=== PATIENT | male | born 1935 | race Hispanic/Latino ===

== ENCOUNTER 2017-01-16 12:10 | Inpatient (IN) | payer MEDICARE ==
--- NOTE | 2017-01-16 12:51 | Emergency Department Report ---
ED Shortness of Breath HPI - General Chief Complaint: Dyspnea/Respdistress Stated Complaint: NIKITA Time Seen by Provider: 01/16/17 12:31 Source: patient, EMS Mode of arrival: Stretcher Limitations: Physical Limitation - History of Present Illness Initial Comments: 81-year-old male with a past medical history COPD on home O2, diabetes, GERD, appendectomy and previous admission to [facility] where he was treated for infection of the liver and presents with a surgical right upper quadrant drain presents to the hospital with difficulty breathing. Patient has had difficulty breathing for several hours prior to calling EMS. Patient went to the bathroom had a syncopal episode. Noted to have bilateral rales and rhonchi throughout. Patient was placed on CPAP by EMS and received morphine 2 mg, Lasix 20 mg, and aspirin 325 mg. Patient complains of chest pain rated 6/10 in intensity related to difficulty breathing. He denies headache, neck pain, abdominal pain , or focal weakness. After family member arrival she was able to clarify that patient had a cholecystostomy tube placed about 2 months ago at [facility] because patient was too weak to undergo cholecystectomy. The tube may have been pulled out a little bit since placement. - Related Data Home Medications Medication Instructions Recorded Confirmed Last Taken Aspirin [Aspirin BABY CHEW TAB] 81 mg PO DAILY 02/17/13 10/11/16 03/30/16 FLUoxetine [PROzac] 20 mg PO DAILY 02/17/13 10/11/16 03/30/16 metFORMIN [Glucophage] 500 mg PO DAILY 02/17/13 10/11/16 03/30/16 Insulin Aspart [NovoLOG Flexpen] 10 units SQ BID 04/05/16 10/11/16 Unknown Allopurinol [Zyloprim] 100 mg PO QDAY 10/11/16 10/11/16 Unknown Budesonide [Pulmicort Flexhaler] 90 mcg IH BID 10/11/16 10/11/16 Unknown Fludrocortisone [Florinef Tab] 0.1 mg PO QDAY 10/11/16 10/11/16 Unknown Ibuprofen [Motrin] 800 mg PO Q8HR PRN 10/11/16 10/11/16 Unknown Insulin Regular, Human [HumuLIN R] 4 units SUB-Q BID 10/11/16 10/11/16 Unknown Pregabalin [Lyrica] 75 mg PO QDAY 10/11/16 10/11/16 Unknown Umeclidinium Brm/Vilanterol Tr 1 each IH DAILY 10/11/16 10/11/16 Unknown [Anoro Ellipta 62.5-25 Mcg INH] Previous Rx's Medication Instructions Recorded Last Taken Type Budesonide [Pulmicort Respules] 0.5 mg IH Q12HRT #14 nebu 02/19/13 03/30/16 Rx Allergies Allergy/AdvReac Type Severity Reaction Status Date / Time cephalexin monohydrate Allergy Rash Verified 03/30/16 13:54 [From Keflex] Cephalosporins Allergy Rash Verified 01/03/13 14:16 Penicillins Allergy Rash Verified 01/03/13 14:16 ED Review of Systems ROS: Stated complaint: NIKITA Other details as noted in HPI Comment: All other systems reviewed and negative Other: Constitutional: No fevers chills Eyes: No eye pain visual changes ENT: No ear pain or throat pain Neck: Denies pain Respiratory: As per HPI Cardiovascular: As per HPI GI: As per HPI : Denies dysuria Musculoskeletal: Denies back pain Skin: Denies rash, lesions, erythema Neurologic: Denies headache, numbness, weakness Psychiatric: Denies suicidal ideation, hallucinations ED Past Medical Hx - Past Medical History Previous Medical History?: Yes Hx Hypertension: No Hx Diabetes: Yes Hx Deep Vein Thrombosis: No Hx GERD: Yes Hx COPD: Yes (ON 02 AT 2L NC ALL THE TIME) Additional medical history: hx pericarditis, recently cleared MRSA, toe infection - Surgical History Past Surgical History?: Yes Hx Pacemaker: No Hx Internal Defibrillator: No Hx Appendectomy: Yes Additional Surgical History: cervical (c3-c4) fusion, TURP, penile implant. Gallbladder drain - Social History Smoking Status: Former Smoker Substance Use Type: Prescribed - Medications Home Medications: Home Medications Medication Instructions Recorded Confirmed Last Taken Type Aspirin [Aspirin BABY CHEW TAB] 81 mg PO DAILY 02/17/13 10/11/16 03/30/16 History FLUoxetine [PROzac] 20 mg PO DAILY 02/17/13 10/11/16 03/30/16 History metFORMIN [Glucophage] 500 mg PO DAILY 02/17/13 10/11/16 03/30/16 History Budesonide [Pulmicort Respules] 0.5 mg IH Q12HRT #14 nebu 02/19/13 10/11/1605/11 Rx Insulin Aspart [NovoLOG Flexpen] 10 units SQ BID 04/05/16 10/11/16 Unknown History Allopurinol [Zyloprim] 100 mg PO QDAY 10/11/16 10/11/16 Unknown History Budesonide [Pulmicort Flexhaler] 90 mcg IH BID 10/11/16 10/11/16 Unknown History Fludrocortisone [Florinef Tab] 0.1 mg PO QDAY 10/11/16 10/11/16 Unknown History Ibuprofen [Motrin] 800 mg PO Q8HR PRN 10/11/16 10/11/16 Unknown History Insulin Regular, Human [HumuLIN R] 4 units SUB-Q BID 10/11/16 10/11/16 Unknown History Pregabalin [Lyrica] 75 mg PO QDAY 10/11/16 10/11/16 Unknown History Umeclidinium Brm/Vilanterol Tr 1 each IH DAILY 10/11/16 10/11/16 Unknown History [Anoro Ellipta 62.5-25 Mcg INH] ED Physical Exam - General Limitations: Physical Limitation - Other Other exam information: General: No limitations, patient is alert in no acute distress Head exam: Atraumatic, normocephalic Eyes exam: Normal appearance, pupils equal reactive to light, extraocular movements intact. Nonicteric sclera ENT: Moist mucous membrane, normal oropharynx Neck exam: Normal inspection, full range of motion, no meningismus nontender Respiratory exam: Tachypnea, bilateral rhonchi Cardiovascular: Normal rate and rhythm Abdomen: Soft, nondistended, right upper quadrant drainage tube with bilious drainage. Abdomen nontender Extremity: Full range of motion normal inspection no deformity, Parker symmetric, no edema, minute Back: Normal Inspection, full range of motion, no tenderness Neurologic: Alert, cranial nerves intact, equal hand shank cementer hand and dorsiflexion. Sensation intact Psychiatric: normal affect, normal mood Skin: Warm, dry, intact ED Course Vital Signs 01/16/17 01/16/17 01/16/17 12:13 12:49 12:51 Temperature 97 F L Pulse Rate 100 H 85 Pulse Rate [ Bilateral] Respiratory 28 H 28 H 32 H Rate Respiratory Rate [Bilateral ] Blood Pressure Blood Pressure [Right] O2 Sat by Pulse 99 99 99 Oximetry 11/01/16/17 01/16/17 12:53 13:00 13:12 Temperature Pulse Rate 83 85 83 Pulse Rate [ Bilateral] Respiratory 32 H 35 H 28 H Rate Respiratory Rate [Bilateral ] Blood Pressure 74/37 Blood Pressure 74/37 72/40 [Right] O2 Sat by Pulse 99 98 99 Oximetry 01/16/17 01/16/17 01/16/17 13:16 13:30 13:34 Temperature Pulse Rate 85 80 81 Pulse Rate [ Bilateral] Respiratory 35 H 34 H Rate Respiratory Rate [Bilateral ] Blood Pressure 72/40 81/43 Blood Pressure [Right] O2 Sat by Pulse 97 97 Oximetry 01/16/17 01/16/17 01/16/17 13:46 13:48 14:00 Temperature Pulse Rate 88 113 H Pulse Rate [ 86 Bilateral] Respiratory 29 H 33 H Rate Respiratory 33 H Rate [Bilateral ] Blood Pressure 81/43 81/43 Blood Pressure [Right] O2 Sat by Pulse 95 89 Oximetry 01/16/17 18:26 Temperature Pulse Rate 126 H Pulse Rate [ Bilateral] Respiratory 29 H Rate Respiratory Rate [Bilateral ] Blood Pressure 110/53 Blood Pressure [Right] O2 Sat by Pulse 96 Oximetry - Reevaluation(s) Reevaluation #1: 01/16/17 12:51 BiPAP continued upon arrival. ED Medical Decision Making - Lab Data Result diagrams: 01/16/17 12:38 01/16/17 12:38 Lab Results 01/16/17 01/16/17 01/16/17 Range/Units 12:38 12:38 12:38 WBC 16.7 H (4.5-11.0) K/mm3 RBC 3.18 L (3.65-5.03) M/mm3 Hgb 10.0 L (11.8-15.2) gm/dl Hct 29.2 L (35.5-45.6) % MCV 92 (84-94) fl MCH 31 (28-32) pg MCHC 34 (32-34) % RDW 16.9 H (13.2-15.2) % Plt Count 300 (140-440) K/mm3 Lymph % (Auto) 8.1 L (13.4-35.0) % Price % (Auto) 4.6 (0.0-7.3) % Eos % (Auto) 3.0 (0.0-4.3) % Baso % (Auto) 0.4 (0.0-1.8) % Lymph # 1.4 (1.2-5.4) K/mm3 Price # 0.8 (0.0-0.8) K/mm3 Eos # 0.5 H (0.0-0.4) K/mm3 Baso # 0.1 (0.0-0.1) K/mm3 Seg Neutrophils % 83.9 H (40.0-70.0) % Seg Neutrophils # 14.0 H (1.8-7.7) K/mm3 PT 16.1 H (12.2-14.9) Sec. INR 1.23 H (0.87-1.13) APTT 32.7 (24.2-36.6) Sec. POC ABG pH (7.35-7.45) POC ABG pCO2 (35-45) POC ABG pO2 (80-105) POC ABG HCO3 POC ABG Total CO2 POC ABG O2 Sat POC ABG Base Excess FiO2 % Sodium 139 (137-145) mmol/L Potassium 4.2 (3.6-5.0) mmol/L Chloride 103.9 (98-107) mmol/L Carbon Dioxide 19 L (22-30) mmol/L Anion Gap 20 mmol/L BUN 24 H (9-20) mg/dL Creatinine 0.8 (0.8-1.5) mg/dL Estimated GFR > 60 ml/min BUN/Creatinine Ratio 30 % Glucose 195 H (75-100) mg/dL Lactic Acid (0.7-2.0) mmol/L Calcium 8.5 (8.4-10.2) mg/dL Total Bilirubin (0.1-1.2) mg/dL Direct Bilirubin (0-0.2) mg/dL AST (5-40) units/L ALT (7-56) units/L Alkaline Phosphatase (35-129) units/L Troponin T < 0.010 (0.00-0.029) ng/mL NT-Pro-B Natriuret Pep (0-900) pg/mL Total Protein (6.3-8.2) g/dL Albumin (3.9-5) g/dL Albumin/Globulin Ratio % Lipase (13-60) units/L Urine Color (Yellow) Urine Turbidity (Clear) Urine pH (5.0-7.0) Ur Specific [place] (1.003-1.030) Urine Protein (Negative) mg/dL Urine Glucose (UA) (Negative) mg/dL Urine Ketones (Negative) mg/dL Urine Blood (Negative) Urine Nitrite (Negative) Urine Bilirubin (Negative) Urine Urobilinogen (<2.0) mg/dL Ur Leukocyte Esterase (Negative) Urine WBC (Auto) (0.0-6.0) /HPF Urine RBC (Auto) (0.0-6.0) /HPF U Epithel Cells (Auto) (0-13.0) /HPF Urine Mucus /HPF Urine Yeast (Budding) /HPF Blood Type Antibody Screen 01/16/17 01/16/17 01/16/17 Range/Units 12:38 12:50 13:33 WBC (4.5-11.0) K/mm3 RBC (3.65-5.03) M/mm3 Hgb (11.8-15.2) gm/dl Hct (35.5-45.6) % MCV (84-94) fl MCH (28-32) pg MCHC (32-34) % RDW (13.2-15.2) % Plt Count (140-440) K/mm3 Lymph % (Auto) (13.4-35.0) % Price % (Auto) (0.0-7.3) % Eos % (Auto) (0.0-4.3) % Baso % (Auto) (0.0-1.8) % Lymph # (1.2-5.4) K/mm3 Price # (0.0-0.8) K/mm3 Eos # (0.0-0.4) K/mm3 Baso # (0.0-0.1) K/mm3 Seg Neutrophils % (40.0-70.0) % Seg Neutrophils # (1.8-7.7) K/mm3 PT (12.2-14.9) Sec. INR (0.87-1.13) APTT (24.2-36.6) Sec. POC ABG pH 7.456 H (7.35-7.45) POC ABG pCO2 31.6 L (35-45) POC ABG pO2 203 H (80-105) POC ABG HCO3 22.3 POC ABG Total CO2 23 POC ABG O2 Sat 100 POC ABG Base Excess -2 FiO2 50 % Sodium (137-145) mmol/L Potassium (3.6-5.0) mmol/L Chloride (98-107) mmol/L Carbon Dioxide (22-30) mmol/L Anion Gap mmol/L BUN (9-20) mg/dL Creatinine (0.8-1.5) mg/dL Estimated GFR ml/min BUN/Creatinine Ratio % Glucose (75-100) mg/dL Lactic Acid (0.7-2.0) mmol/L Calcium (8.4-10.2) mg/dL Total Bilirubin 0.20 (0.1-1.2) mg/dL Direct Bilirubin < 0.2 (0-0.2) mg/dL AST 15 (5-40) units/L ALT 16 (7-56) units/L Alkaline Phosphatase 68 (35-129) units/L Troponin T (0.00-0.029) ng/mL NT-Pro-B Natriuret Pep 1522 H (0-900) pg/mL Total Protein 6.4 (6.3-8.2) g/dL Albumin 3.1 L (3.9-5) g/dL Albumin/Globulin Ratio 0.9 % Lipase 28 (13-60) units/L Urine Color Yellow (Yellow) Urine Turbidity Clear (Clear) Urine pH 6.0 (5.0-7.0) Ur Specific [place] 1.009 (1.003-1.030) Urine Protein 30 mg/dl (Negative) mg/dL Urine Glucose (UA) Neg (Negative) mg/dL Urine Ketones Neg (Negative) mg/dL Urine Blood Neg (Negative) Urine Nitrite Neg (Negative) Urine Bilirubin Neg (Negative) Urine Urobilinogen < 2.0 (<2.0) mg/dL Ur Leukocyte Esterase Mod (Negative) Urine WBC (Auto) 21.0 H (0.0-6.0) /HPF Urine RBC (Auto) 5.0 (0.0-6.0) /HPF U Epithel Cells (Auto) < 1.0 (0-13.0) /HPF Urine Mucus Few /HPF Urine Yeast (Budding) 1+ /HPF Blood Type Antibody Screen 01/16/17 01/16/17 Range/Units 13:38 17:51 WBC (4.5-11.0) K/mm3 RBC (3.65-5.03) M/mm3 Hgb (11.8-15.2) gm/dl Hct (35.5-45.6) % MCV (84-94) fl MCH (28-32) pg MCHC (32-34) % RDW (13.2-15.2) % Plt Count (140-440) K/mm3 Lymph % (Auto) (13.4-35.0) % Price % (Auto) (0.0-7.3) % Eos % (Auto) (0.0-4.3) % Baso % (Auto) (0.0-1.8) % Lymph # (1.2-5.4) K/mm3 Price # (0.0-0.8) K/mm3 Eos # (0.0-0.4) K/mm3 Baso # (0.0-0.1) K/mm3 Seg Neutrophils % (40.0-70.0) % Seg Neutrophils # (1.8-7.7) K/mm3 PT (12.2-14.9) Sec. INR (0.87-1.13) APTT (24.2-36.6) Sec. POC ABG pH (7.35-7.45) POC ABG pCO2 (35-45) POC ABG pO2 (80-105) POC ABG HCO3 POC ABG Total CO2 POC ABG O2 Sat POC ABG Base Excess FiO2 % Sodium (137-145) mmol/L Potassium (3.6-5.0) mmol/L Chloride (98-107) mmol/L Carbon Dioxide (22-30) mmol/L Anion Gap mmol/L BUN (9-20) mg/dL Creatinine (0.8-1.5) mg/dL Estimated GFR ml/min BUN/Creatinine Ratio % Glucose (75-100) mg/dL Lactic Acid 1.30 (0.7-2.0) mmol/L Calcium (8.4-10.2) mg/dL Total Bilirubin (0.1-1.2) mg/dL Direct Bilirubin (0-0.2) mg/dL AST (5-40) units/L ALT (7-56) units/L Alkaline Phosphatase (35-129) units/L Troponin T (0.00-0.029) ng/mL NT-Pro-B Natriuret Pep (0-900) pg/mL Total Protein (6.3-8.2) g/dL Albumin (3.9-5) g/dL Albumin/Globulin Ratio % Lipase (13-60) units/L Urine Color (Yellow) Urine Turbidity (Clear) Urine pH (5.0-7.0) Ur Specific [place] (1.003-1.030) Urine Protein (Negative) mg/dL Urine Glucose (UA) (Negative) mg/dL Urine Ketones (Negative) mg/dL Urine Blood (Negative) Urine Nitrite (Negative) Urine Bilirubin (Negative) Urine Urobilinogen (<2.0) mg/dL Ur Leukocyte Esterase (Negative) Urine WBC (Auto) (0.0-6.0) /HPF Urine RBC (Auto) (0.0-6.0) /HPF U Epithel Cells (Auto) (0-13.0) /HPF Urine Mucus /HPF Urine Yeast (Budding) /HPF Blood Type A POSITIVE Antibody Screen Negative - EKG Data -: EKG Interpreted by Me (rbbb, lafb) EKG shows normal: sinus rhythm (96), axis (-72), QRS complexes (135), ST-T waves (no t wave inv) - EKG Data When compared to previous EKG there are: no significant change - Radiology Data Radiology results: report reviewed Read by radiologist: Portable chest x-ray: No acute process CT head: Significant changes no acute process CT abdomen and pelvis with IV contrast: Mild inflamed gallbladder with a cholecystostomy tube. Otherwise no acute inflammatory process is appreciated. Possible distal common bile duct stone or sludge. Bilateral renal 6 CT angiogram chest: No evidence of pulmonary embolus. Mild emphysema. Bilateral perihilar infiltrates consistent with pneumonia Read by me: Portable chest x-ray status post right IJ placement: Increased interstitial markings perihilar and left lower lobe. Could represent CHF versus infiltrate. Patient has received 3 L of normal saline prior to this repeat x-ray - Medical Decision Making Patient requires admission to the hospital for further treatment of respiratory distress with hypoxia and persistent hypotension despite IV fluid bolus. After 3 L normal saline IV patient continued to be hypotensive therefore central line was placed. At the central line placement and placemnt in Trendelenburg patient 's BP improved with systolic above 100. Chest xray now reveals increased interstitial markings which could represent pulmonary edema from fluid resuscitation or a more visible pneumonia. BiPAP will be continued. ABG did not reveal any significant acid base abnormality. Urine positive for increased WBC. Patient provided both Levaquin for both UTI and pneumonia. Patient will require ICU admission and possible surgical eval regarding cholecystomy tube - Differential Diagnosis CHF, PE, bronchitis, pneumonia, sepsis, COPD exacerbation Critical Care Time: No Critical care attestation.: If time is entered above; I have spent that time in minutes in the direct care of this critically ill patient, excluding procedure time. ED Disposition Clinical Impression: Pneumonia, COPD exacerbation, Hypotension, UTI (urinary tract infection), Type II diabetes mellitus, Gallstones and inflammation of gallbladder without obstruction, Cholecystostomy care, Syncope, Hypoxia Disposition: -09 OP ADMIT IP TO THIS HOSP Is pt being admited?: Yes Condition: Stable Time of Disposition: 16:33 (Dr Aguilar/hosp)
[2017-01-16 12:59] LABS: Basophils % (Auto) 0.4 % (0.0-1.8); Hematocrit 29.2 % (35.5-45.6); Mean Corpuscular HGB Conc 34 % (32-34); Mean Corpuscular Hemoglobin 31 pg (28-32); Mean Corpuscular Volume 92 fl (84-94); Platelet Count 300 K/mm3 (140-440); Red Blood Count 3.18 M/mm3 (3.65-5.03); Red Cell Distribution Width 16.9 % (13.2-15.2); White Blood Count 16.7 K/mm3 (4.5-11.0)
--- NOTE | 2017-01-16 13:07 | XRay Report ---
AP CHEST: HISTORY: Short of breath AP view of the chest demonstrates a normal mediastinal and cardiac contour with clear lungs and normal bony and soft tissue structures. IMPRESSION: No acute cardiopulmonary process.
[2017-01-16 13:10] LABS: INR 1.23 (0.87-1.13)
[2017-01-16] MEDS: NACL 0.9% 1000 ML 1,000 ML IV ONE ×2 (13:10→13:22)
[2017-01-16 13:11] LABS: Partial Thromboplastin Time 32.7 Sec. (24.2-36.6)
[2017-01-16] MEDS ORDERED: ATROVENT IH ONE (13:11)
[2017-01-16] MEDS ORDERED: PROVENTIL IH ONE (13:11)
[2017-01-16 13:13] LABS: ISTAT Base Excess -2; ISTAT HCO3 22.3; ISTAT PCO2 31.6 (35-45); ISTAT PH 7.456 (7.35-7.45); ISTAT PO2 203 (80-105); ISTAT SO2 100; ISTAT TCO2 23
[2017-01-16] MEDS ORDERED: NACL 0.9% 1000 ML 1,000 ML IV ONE ×2 (13:14→15:56)
[2017-01-16 13:19] LABS: Anion Gap 20 mmol/L; BUN/Creatinine Ratio 30; Blood Urea Nitrogen 24 mg/dL (9-20); Calcium 8.5 mg/dL (8.4-10.2); Carbon Dioxide 19 mmol/L (22-30); Chloride 103.9 mmol/L (98-107); Glucose 195 mg/dL (75-100); Potassium 4.2 mmol/L (3.6-5.0); Sodium 139 mmol/L (137-145)
[2017-01-16 13:23] LABS: Alanine Aminotransferase 16 units/L (7-56); Albumin 3.1 g/dL (3.9-5); Albumin/Globulin Ratio 0.9 %; Alkaline Phosphatase 68 units/L (35-129); Lipase 28 units/L (13-60); Total Protein 6.4 g/dL (6.3-8.2)
[2017-01-16 13:24] LABS: Bilirubin,Direct < 0.2 mg/dL (0-0.2)
[2017-01-16] MEDS ORDERED: NACL ONE ×2 (13:32→14:27)
[2017-01-16 14:02] LABS: Bilirubin,Urine NEG (Negative); Blood,Urine NEG (Negative); Ketones,Urine NEG (Negative); Leukocyte Esterase,Urine MOD (Negative); Mucus,Urine FEW /HPF; Nitrite,Urine NEG (Negative); Urobilinogen,Urine < 2.0 mg/dL (<2.0)
[2017-01-16] MEDS ORDERED: LEVAQUIN 750MG/150ML 750 MG/150 ML BAG IV ONE (14:21)
[2017-01-16] MEDS ORDERED: DILAUDID IV ONE (14:35)
[2017-01-16] MEDS ORDERED: ZOFRAN IV ONE (14:36)
--- NOTE | 2017-01-16 15:28 | Cat Scan Report ---
CT HEAD WITHOUT CONTRAST: HISTORY: Syncope. TECHNIQUE: Sequential CT images without contrast. FINDINGS: Non-contrast CT of the head is submitted demonstrating central and cortical atrophy. There are low density changes in the periventricular white matter. There is no intracranial hemorrhage or mass effect. There is no shift of the midline. Basilar cisterns are patent. The included portions of the paranasal sinuses and mastoid air cells are clear. IMPRESSION: Senescent changes as noted. No acute intracranial process.
--- NOTE | 2017-01-16 15:30 | Cat Scan Report ---
CTA CHEST: HISTORY: Syncope, hypoxia, COPD. COMPARISON: none. TECHNIQUE: Helical CT in 1.25mm intervals following IV contrast. Pulmonary embolus protocol. Sagittal and coronal reformatted images. Rotational MIP images. FINDINGS: Contrast bolus is satisfactory. No pulmonary embolus is identified. Thyroid gland: normal. Tracheobronchial tree: normal. Esophagus: normal. Heart: normal. Mediastinum: normal. Lung Dill: Mild emphysematous changes are identified. There are patchy bilateral perihilar infiltrates consistent with pneumonia. No consolidation, pleural effusion or pneumothorax. Musculoskeletal: normal. IMPRESSION: No evidence for pulmonary embolus. Mild emphysema. Bilateral perihilar infiltrates consistent with pneumonia.
--- NOTE | 2017-01-16 15:33 | Cat Scan Report ---
CT ABDOMEN PELVIS WITH CONTRAST: HISTORY: abdominal pain. COMPARISON: none. TECHNIQUE: Helical CT in 1.25mm intervals following IV contrast. Sagittal and coronal reconstructions. FINDINGS: Liver: normal. Biliary system: A cholecystostomy tube terminates in the gallbladder. The gallbladder appears mildly inflamed. There is an abrupt change in caliber in the distal common bile duct consistent with a stone or sludge. Choledocholithiasis should be considered. Pancreas: normal. Spleen: normal. Kidneys/ureters/bladder: Bilateral renal cysts are identified. The largest cyst measures 6.7 cm in the inferior right kidney. The ureters and bladder are unremarkable. A Nguyễn catheter is in place. Adrenal glands: normal. Aorta: normal. Intestines: normal. Appendix: Not clearly identified. Pelvic viscera: normal. Musculoskeletal: Spondylosis is noted. No fracture or bony lesion. IMPRESSION: Mildly inflamed gallbladder which contains a cholecystostomy tube. Otherwise, no acute inflammatory process is appreciated. Possible distal common bile duct stone or sludge. Bilateral renal cysts
[2017-01-16] MEDS ORDERED: ZOFRAN IV PRN (17:20)
--- NOTE | 2017-01-16 17:26 | History and Physical Report ---
History of Present Illness Date of examination: 01/16/17 Date of admission: 01/16/17 History of present illness: 81-year-old male with a past medical history COPD on home O2, diabetes, GERD, appendectomy and previous admission to [facility] where he was treated for infection of the liver and presents with a surgical right upper quadrant drain presents to the hospital with difficulty breathing. Patient has had difficulty breathing for several hours prior to calling EMS. Patient went to the bathroom had a syncopal episode. Noted to have bilateral rales and rhonchi throughout. Patient was placed on CPAP by EMS and received morphine 2 mg, Lasix 20 mg, and aspirin 325 mg. Patient complains of chest pain rated 6/10 in intensity related to difficulty breathing. He denies headache, neck pain, abdominal pain , or focal weakness. After family member arrival she was able to clarify that patient had a cholecystostomy tube placed about 2 months ago at [facility] because patient was too weak to undergo cholecystectomy. The tube may have been pulled out a little bit since placement. Medications and Allergies Allergies Allergy/AdvReac Type Severity Reaction Status Date / Time cephalexin monohydrate Allergy Rash Verified 03/30/16 13:54 [From Keflex] Cephalosporins Allergy Rash Verified 01/03/13 14:16 Penicillins Allergy Rash Verified 01/03/13 14:16 Home Medications Medication Instructions Recorded Confirmed Last Taken Type Aspirin [Aspirin BABY CHEW TAB] 81 mg PO DAILY 02/17/13 01/17/17 03/30/16 History FLUoxetine [PROzac] 20 mg PO DAILY 02/17/13 01/17/17 03/30/16 History metFORMIN [Glucophage] 500 mg PO DAILY 02/17/13 01/17/17 03/30/16 History Budesonide [Pulmicort Respules] 0.5 mg IH Q12HRT #14 nebu 02/19/13 01/17/1705/11 Rx Insulin Aspart [NovoLOG Flexpen] 10 units SQ BID 04/05/16 01/17/17 Unknown History Allopurinol [Zyloprim] 100 mg PO QDAY 10/11/16 01/17/17 Unknown History Budesonide [Pulmicort Flexhaler] 90 mcg IH BID 10/11/16 01/17/17 Unknown History Fludrocortisone [Florinef Tab] 0.1 mg PO QDAY 10/11/16 01/17/17 Unknown History Ibuprofen [Motrin] 800 mg PO Q8HR PRN 10/11/16 01/17/17 Unknown History Insulin Regular, Human [HumuLIN R] 4 units SUB-Q BID 10/11/16 01/17/17 Unknown History Pregabalin [Lyrica] 75 mg PO QDAY 10/11/16 01/17/17 Unknown History Umeclidinium Brm/Vilanterol Tr 1 each IH DAILY 10/11/16 01/17/17 Unknown History [Anoro Ellipta 62.5-25 Mcg INH] Active Meds: Active Medications Ondansetron HCl (Zofran) 4 mg IV Q6H PRN PRN Reason: nausea or vomiting Exam - Physical Exam Narrative exam: GEN APPEARANCE : On BIPAP mask HEENT: Normocephalic Atraumatic NECK : supple, no JVD LUNGS: Bilateral rales. no wheeze HEART: S1 and S2 regular, no murmurs, rubs or gallop,r ABD: Soft, no tenderness, no distension, normal bowel sounds EXT: No edema, no clubbing, no cyanosis NEURO: Awake,alert, Skin Sacral and heel decub ulcers - Constitutional Vitals: Temp Pulse Resp BP Pulse Ox 97 F L 113 H 33 H 81/43 89 01/16/17 12:13 01/16/17 14:00 01/16/17 14:00 01/16/17 14:00 01/16/17 14:00 Results - Labs CBC & Chem 7: 01/17/17 07:15 01/17/17 04:28 Labs: Abnormal lab results 01/16/17 01/16/17 01/16/17 Range/Units 12:38 12:38 12:38 WBC 16.7 H (4.5-11.0) K/mm3 RBC 3.18 L (3.65-5.03) M/mm3 Hgb 10.0 L (11.8-15.2) gm/dl Hct 29.2 L (35.5-45.6) % RDW 16.9 H (13.2-15.2) % Lymph % (Auto) 8.1 L (13.4-35.0) % Eos # 0.5 H (0.0-0.4) K/mm3 Seg Neutrophils % 83.9 H (40.0-70.0) % Seg Neutrophils # 14.0 H (1.8-7.7) K/mm3 PT 16.1 H (12.2-14.9) Sec. INR 1.23 H (0.87-1.13) POC ABG pH (7.35-7.45) POC ABG pCO2 (35-45) POC ABG pO2 (80-105) Carbon Dioxide 19 L (22-30) mmol/L BUN 24 H (9-20) mg/dL Glucose 195 H (75-100) mg/dL NT-Pro-B Natriuret Pep (0-900) pg/mL Albumin (3.9-5) g/dL Urine WBC (Auto) (0.0-6.0) /HPF 01/16/17 01/16/17 01/16/17 Range/Units 12:38 12:50 13:33 WBC (4.5-11.0) K/mm3 RBC (3.65-5.03) M/mm3 Hgb (11.8-15.2) gm/dl Hct (35.5-45.6) % RDW (13.2-15.2) % Lymph % (Auto) (13.4-35.0) % Eos # (0.0-0.4) K/mm3 Seg Neutrophils % (40.0-70.0) % Seg Neutrophils # (1.8-7.7) K/mm3 PT (12.2-14.9) Sec. INR (0.87-1.13) POC ABG pH 7.456 H (7.35-7.45) POC ABG pCO2 31.6 L (35-45) POC ABG pO2 203 H (80-105) Carbon Dioxide (22-30) mmol/L BUN (9-20) mg/dL Glucose (75-100) mg/dL NT-Pro-B Natriuret Pep 1522 H (0-900) pg/mL Albumin 3.1 L (3.9-5) g/dL Urine WBC (Auto) 21.0 H (0.0-6.0) /HPF Assessment and Plan Acute resp failure. Admit to ICU. On BIPAP Septic shock. Started Levaquin and vancomycin. he is allergic to Penicillin, Cephalosporin Hypotension, may be septic shock. Start Levophed drip. Multiple iv fluid bolus given Pneumonia, bilateral on CXR. Diabetes mellitus. Monitor fingerstick Decub ulcer right cholecystostomy tube with leaking over abdominal wall. family said tube was accidentally pulled bu home health staff. Will consult surg instructional interventionist DVT prophylaxis Full code status
[2017-01-16] MEDS ORDERED: VANCOMYCIN VIAL IV ONE (17:29)
[2017-01-16] MEDS ORDERED: NACL 0.9% 1000 ML 2,000 ML IV ONE (17:38)
[2017-01-16] MEDS ORDERED: PROTONIX IV SCH (18:00)
[2017-01-16] MEDS ORDERED: LEVOPHED DRIP 4 MG/NS 250 ML 4 MG/250 ML BAG IV SCH (18:00)
[2017-01-16] MEDS ORDERED: VANCOMYCIN PHARMACY TO DOSE IV SCH (18:00)
[2017-01-16] MEDS ORDERED: NACL 0.9% 1000 ML 1,000 ML ONE (19:29)
[2017-01-16] MEDS ORDERED: VANCOMYCIN 1,500 MG in NACL 0.9% 500 ML 500 ML IV ONE (20:00)
[2017-01-16] MEDS ORDERED: FLAGYL 500 MG/100 ML 500 MG/100 ML BAG IV ONE (20:07)
[2017-01-16] MEDS: FLAGYL 500 MG/100 ML 500 MG/100 ML BAG IV SCH ×2 (20:08→22:41)
--- NOTE | 2017-01-16 20:23 | XRay Report ---
FINAL REPORT PROCEDURE: XR CHEST 1V AP TECHNIQUE: Chest radiograph anteroposterior view. CPT 77116 HISTORY: central line placement COMPARISON: No prior studies are available for comparison. FINDINGS: Heart: Normal. Mediastinum/Vessels: Normal. Lungs/Pleural space: Diffuse alveolar opacities are noted involving bilateral lungs. There are no mass lesions. Pleural spaces are clear.. Bony thorax: No acute osseous abnormality. Life support devices: A right jugular central line is identified terminating at the level of mid superior vena cava.. IMPRESSION: Findings are most consistent with diffuse pneumonia bilateral lungs. Comparison with any prior studies would be of help..
[2017-01-17] MEDS ORDERED: MORPHINE IV PRN (03:05)
--- NOTE | 2017-01-17 04:47 | Consultation ---
History of Present Illness Consult date: 01/17/17 - History of present illness History of present illness: 81 yo M with hx of COPD on 3LNC at home, DM, GERD presents to ER with SOB and near syncopal events. The patient is currently on BIPAP and all history is obtained from the chart. No family at bedside. Per chart, the patient was seen at [facility] approximately 2 months ago and had a percutaneous cholecystostomy tube placed at that time. Surgery is consulted because of leakage around the cholecystostomy tube. Past History Past Medical History: COPD, diabetes, GERD Past Surgical History: Other (percutaneous cholecystostomy tube, appendectomy) Social history: denies: smoking, alcohol abuse Family history: no significant family history Medications and Allergies Allergies Allergy/AdvReac Type Severity Reaction Status Date / Time cephalexin monohydrate Allergy Rash Verified 03/30/16 13:54 [From Keflex] Cephalosporins Allergy Rash Verified 01/03/13 14:16 Penicillins Allergy Rash Verified 01/03/13 14:16 Home Medications Medication Instructions Recorded Confirmed Last Taken Type Aspirin [Aspirin BABY CHEW TAB] 81 mg PO DAILY 02/17/13 10/11/16 03/30/16 History FLUoxetine [PROzac] 20 mg PO DAILY 02/17/13 10/11/16 03/30/16 History metFORMIN [Glucophage] 500 mg PO DAILY 02/17/13 10/11/16 03/30/16 History Budesonide [Pulmicort Respules] 0.5 mg IH Q12HRT #14 nebu 02/19/13 10/11/1605/11 Rx Insulin Aspart [NovoLOG Flexpen] 10 units SQ BID 04/05/16 10/11/16 Unknown History Allopurinol [Zyloprim] 100 mg PO QDAY 10/11/16 10/11/16 Unknown History Budesonide [Pulmicort Flexhaler] 90 mcg IH BID 10/11/16 10/11/16 Unknown History Fludrocortisone [Florinef Tab] 0.1 mg PO QDAY 10/11/16 10/11/16 Unknown History Ibuprofen [Motrin] 800 mg PO Q8HR PRN 10/11/16 10/11/16 Unknown History Insulin Regular, Human [HumuLIN R] 4 units SUB-Q BID 10/11/16 10/11/16 Unknown History Pregabalin [Lyrica] 75 mg PO QDAY 10/11/16 10/11/16 Unknown History Umeclidinium Brm/Vilanterol Tr 1 each IH DAILY 10/11/16 10/11/16 Unknown History [Anoro Ellipta 62.5-25 Mcg INH] Active Meds: Active Medications Levofloxacin/Dextrose (Levaquin 750mg/150ml) 750 mg in 150 mls @ 100 mls/hr IV Q24HR SABINO PRN Reason: Protocol Metronidazole (Flagyl 500 Mg/100 Ml) 500 mg in 100 mls @ 100 mls/hr IV Q8HR [facility] Last Admin: 01/16/17 22:41 Dose: Not Given Norepinephrine (Levophed Drip 4 Mg/Ns 250 Ml) 4 mg in 250 mls @ 7.5 mls/hr IV TITR SABINO; 2 MCG/MIN PRN Reason: Protocol Vancomycin HCl 1,250 mg/ (Sodium Chloride) 262.5 mls @ 166.667 mls/hr IV Q12H SABINO Morphine Sulfate (Morphine) 2 mg IV Q4H PRN PRN Reason: Pain, Moderate (4-6) Last Admin: 01/17/17 03:16 Dose: 2 mg Ondansetron HCl (Zofran) 4 mg IV Q6H PRN PRN Reason: nausea or vomiting Pantoprazole Sodium (Protonix) 40 mg IV QDAY [facility] Last Admin: 01/16/17 20:22 Dose: 40 mg Pneumococcal Polyvalent Vaccine (Pneumovax 23) 0.5 ml IM .ONCE ONE Stop: 01/17/17 12:01 Vancomycin HCl (Vancomycin Pharmacy To Dose) 1 each IV PKCONSULT [facility] PRN Reason: Protocol Review of Systems ROS unobtainable: due to mental status (and on BIPAP) Exam Vital Signs Temp Pulse Resp Pulse Ox 97 F L 100 H 28 H 99 01/16/17 12:13 01/16/17 12:13 01/16/17 12:13 01/16/17 12:13 Narrative exam: Gen: Arousable, lethargic, on bipap ENT: NGT in place CV: S1, S2+ resp: No audible wheezes Abd: soft, NT, ND. cholecystostomy tube in RUQ with minimal drainage in bag. Bile staining on dressing. Dressing removed, excoriation of skin around tube. No active bile leakage seen around tube. 4x4 gauze and coversite applied. Results - Labs 01/16/17 12:38 01/16/17 12:38 Abnormal lab results 01/16/17 01/16/17 01/16/17 Range/Units 12:38 12:38 12:38 WBC 16.7 H (4.5-11.0) K/mm3 RBC 3.18 L (3.65-5.03) M/mm3 Hgb 10.0 L (11.8-15.2) gm/dl Hct 29.2 L (35.5-45.6) % RDW 16.9 H (13.2-15.2) % Lymph % (Auto) 8.1 L (13.4-35.0) % Eos # 0.5 H (0.0-0.4) K/mm3 Seg Neutrophils % 83.9 H (40.0-70.0) % Seg Neutrophils # 14.0 H (1.8-7.7) K/mm3 PT 16.1 H (12.2-14.9) Sec. INR 1.23 H (0.87-1.13) POC ABG pH (7.35-7.45) POC ABG pCO2 (35-45) POC ABG pO2 (80-105) Carbon Dioxide 19 L (22-30) mmol/L BUN 24 H (9-20) mg/dL Glucose 195 H (75-100) mg/dL POC Glucose (70-105) Hemoglobin A1c (4-6) % NT-Pro-B Natriuret Pep (0-900) pg/mL Albumin (3.9-5) g/dL Urine WBC (Auto) (0.0-6.0) /HPF 01/16/17 01/16/17 01/16/17 Range/Units 12:38 12:50 13:33 WBC (4.5-11.0) K/mm3 RBC (3.65-5.03) M/mm3 Hgb (11.8-15.2) gm/dl Hct (35.5-45.6) % RDW (13.2-15.2) % Lymph % (Auto) (13.4-35.0) % Eos # (0.0-0.4) K/mm3 Seg Neutrophils % (40.0-70.0) % Seg Neutrophils # (1.8-7.7) K/mm3 PT (12.2-14.9) Sec. INR (0.87-1.13) POC ABG pH 7.456 H (7.35-7.45) POC ABG pCO2 31.6 L (35-45) POC ABG pO2 203 H (80-105) Carbon Dioxide (22-30) mmol/L BUN (9-20) mg/dL Glucose (75-100) mg/dL POC Glucose (70-105) Hemoglobin A1c (4-6) % NT-Pro-B Natriuret Pep 1522 H (0-900) pg/mL Albumin 3.1 L (3.9-5) g/dL Urine WBC (Auto) 21.0 H (0.0-6.0) /HPF 01/16/17 01/16/17 01/17/17 Range/Units 17:51 23:55 04:31 WBC (4.5-11.0) K/mm3 RBC (3.65-5.03) M/mm3 Hgb (11.8-15.2) gm/dl Hct (35.5-45.6) % RDW (13.2-15.2) % Lymph % (Auto) (13.4-35.0) % Eos # (0.0-0.4) K/mm3 Seg Neutrophils % (40.0-70.0) % Seg Neutrophils # (1.8-7.7) K/mm3 PT (12.2-14.9) Sec. INR (0.87-1.13) POC ABG pH (7.35-7.45) POC ABG pCO2 (35-45) POC ABG pO2 (80-105) Carbon Dioxide (22-30) mmol/L BUN (9-20) mg/dL Glucose (75-100) mg/dL POC Glucose 263 H 212 H (70-105) Hemoglobin A1c 6.5 H (4-6) % NT-Pro-B Natriuret Pep (0-900) pg/mL Albumin (3.9-5) g/dL Urine WBC (Auto) (0.0-6.0) /HPF Diabetes panel 01/16/17 01/16/17 01/16/17 Range/Units 12:38 12:38 17:51 Sodium 139 (137-145) mmol/L Potassium 4.2 (3.6-5.0) mmol/L Chloride 103.9 (98-107) mmol/L Carbon Dioxide 19 L (22-30) mmol/L BUN 24 H (9-20) mg/dL Creatinine 0.8 (0.8-1.5) mg/dL Glucose 195 H (75-100) mg/dL Hemoglobin A1c 6.5 H (4-6) % Calcium 8.5 (8.4-10.2) mg/dL AST 15 (5-40) units/L ALT 16 (7-56) units/L Alkaline Phosphatase 68 (35-129) units/L Total Protein 6.4 (6.3-8.2) g/dL Albumin 3.1 L (3.9-5) g/dL Calcium panel 01/16/17 01/16/17 Range/Units 12:38 12:38 Calcium 8.5 (8.4-10.2) mg/dL Albumin 3.1 L (3.9-5) g/dL Pituitary panel 01/16/17 Range/Units 12:38 Sodium 139 (137-145) mmol/L Potassium 4.2 (3.6-5.0) mmol/L Chloride 103.9 (98-107) mmol/L Carbon Dioxide 19 L (22-30) mmol/L BUN 24 H (9-20) mg/dL Creatinine 0.8 (0.8-1.5) mg/dL Glucose 195 H (75-100) mg/dL Calcium 8.5 (8.4-10.2) mg/dL Adrenal panel 01/16/17 01/16/17 Range/Units 12:38 12:38 Sodium 139 (137-145) mmol/L Potassium 4.2 (3.6-5.0) mmol/L Chloride 103.9 (98-107) mmol/L Carbon Dioxide 19 L (22-30) mmol/L BUN 24 H (9-20) mg/dL Creatinine 0.8 (0.8-1.5) mg/dL Glucose 195 H (75-100) mg/dL Calcium 8.5 (8.4-10.2) mg/dL Total Bilirubin 0.20 (0.1-1.2) mg/dL AST 15 (5-40) units/L ALT 16 (7-56) units/L Alkaline Phosphatase 68 (35-129) units/L Total Protein 6.4 (6.3-8.2) g/dL Albumin 3.1 L (3.9-5) g/dL - Imaging Chest x-ray: report reviewed, image reviewed CT scan - abdomen: report reviewed, image reviewed (cholecystostomy tube in gallbladder, inflammed appearing gallbladder) CT scan - chest: report reviewed, image reviewed (Pneumonia) CT scan - pelvis: report reviewed, image reviewed Assessment and Plan 81 yo M with 1. Acute respiratory failure 2. septic shock 3. Pneumonia 4. Heart failure 5. UTI 6. hx of cholecystostomy tube Plan: 1. medical management per ICU 2. abx 3. NPO 4. IVF 5. IR consult for cholecystostomy tube study and repositioning if needed 6. Pt is not a surgical candidate secondary to current active medical issues, sepsis 7. DVT ppx
[2017-01-17 05:13] LABS: ISTAT Base Excess -9; ISTAT HCO3 20.7; ISTAT PCO2 69.1 (35-45); ISTAT PH 7.086 (7.35-7.45); ISTAT PO2 143 (80-105); ISTAT SO2 98; ISTAT TCO2 23
[2017-01-17 05:16] LABS: Hematocrit 31.1 % (35.5-45.6); Hemoglobin 9.8 gm/dl (11.8-15.2); Mean Corpuscular HGB Conc 32 % (32-34); Mean Corpuscular Hemoglobin 30 pg (28-32); Mean Corpuscular Volume 96 fl (84-94); Platelet Count 324 K/mm3 (140-440); Red Blood Count 3.24 M/mm3 (3.65-5.03); Red Cell Distribution Width 17.5 % (13.2-15.2)
[2017-01-17 05:21] LABS: White Blood Count 61.4 K/mm3 (4.5-11.0)
[2017-01-17] MEDS: FLAGYL 500 MG/100 ML 500 MG/100 ML BAG IV SCH (05:38)
[2017-01-17 06:35] LABS: Albumin 2.8 g/dL (3.9-5); Albumin/Globulin Ratio 0.8 %; Bilirubin,Total 0.2 mg/dL (0.1-1.2); Calcium 8.1 mg/dL (8.4-10.2); Chloride 106.2 mmol/L (98-107); Total Protein 6.4 g/dL (6.3-8.2)
[2017-01-17] MEDS ORDERED: SODIUM BICARBONATE IV ONE ×2 (07:18→07:21)
[2017-01-17] MEDS: NARCAN 0.4 MG/1 ML IV NR ×2 (07:23→08:04)
[2017-01-17] MEDS ORDERED: NARCAN 0.4 MG/1 ML IV NR (07:38)
--- NOTE | 2017-01-17 07:49 | Consultation ---
History of Present Illness Consult date: 01/17/17 Requesting physician: NAI CHUN Reason for consult: other (acute on chronic respiratory) History of present illness: 81 y/o male with known COPD, admitted with acute respiratory distress requiring bipap therapy. CTA done, which was negative for PE but shows bilateral alveolar filling process, could be pneumonia vs edema. Patient was hypotensive despite fluid boluses and was given a right IJ line for possible vasopressor use but we have not had to use it yet. This am, patient is very minimally responsive. Per nursing, administered Morphine at 0300 secondary to abdominal pain. ABG was done at 0500 which showed a pH of 7.06 and PCO2 in the high 60' s. Patient is only arousable via sternal rub. Currently on bipap 20/8 at 50%. Sat on monitor was 85% and a good wave form that correlates with heart rate. I increased the FiO2 to 60 and then 65 and ultimately had to go to 100%. Repeat Gas during this time showed a pH of 7.13 but CO2 at 83 now and PaO2 at 66 , this was on about 65%. Daughter is in waiting room and I have gone out to speak with her about his change in clinical status. Past History Past Medical History: COPD, diabetes, GERD Past Surgical History: Other (percutaneous cholecystostomy tube, appendectomy) Social history: denies: smoking, alcohol abuse Family history: no significant family history Medications and Allergies Allergies Allergy/AdvReac Type Severity Reaction Status Date / Time cephalexin monohydrate Allergy Rash Verified 03/30/16 13:54 [From Keflex] Cephalosporins Allergy Rash Verified 01/03/13 14:16 Penicillins Allergy Rash Verified 01/03/13 14:16 Home Medications Medication Instructions Recorded Confirmed Last Taken Type Aspirin [Aspirin BABY CHEW TAB] 81 mg PO DAILY 02/17/13 10/11/16 03/30/16 History FLUoxetine [PROzac] 20 mg PO DAILY 02/17/13 10/11/16 03/30/16 History metFORMIN [Glucophage] 500 mg PO DAILY 02/17/13 10/11/16 03/30/16 History Budesonide [Pulmicort Respules] 0.5 mg IH Q12HRT #14 nebu 02/19/13 10/11/1605/11 Rx Insulin Aspart [NovoLOG Flexpen] 10 units SQ BID 04/05/16 10/11/16 Unknown History Allopurinol [Zyloprim] 100 mg PO QDAY 10/11/16 10/11/16 Unknown History Budesonide [Pulmicort Flexhaler] 90 mcg IH BID 10/11/16 10/11/16 Unknown History Fludrocortisone [Florinef Tab] 0.1 mg PO QDAY 10/11/16 10/11/16 Unknown History Ibuprofen [Motrin] 800 mg PO Q8HR PRN 10/11/16 10/11/16 Unknown History Insulin Regular, Human [HumuLIN R] 4 units SUB-Q BID 10/11/16 10/11/16 Unknown History Pregabalin [Lyrica] 75 mg PO QDAY 10/11/16 10/11/16 Unknown History Umeclidinium Brm/Vilanterol Tr 1 each IH DAILY 10/11/16 10/11/16 Unknown History [Anoro Ellipta 62.5-25 Mcg INH] Active Meds: Active Medications Levofloxacin/Dextrose (Levaquin 750mg/150ml) 750 mg in 150 mls @ 100 mls/hr IV Q24HR SABINO PRN Reason: Protocol Metronidazole (Flagyl 500 Mg/100 Ml) 500 mg in 100 mls @ 100 mls/hr IV Q8HR SABINO Last Admin: 01/17/17 05:38 Dose: 100 mls/hr Norepinephrine (Levophed Drip 4 Mg/Ns 250 Ml) 4 mg in 250 mls @ 7.5 mls/hr IV TITR SABINO; 2 MCG/MIN PRN Reason: Protocol Vancomycin HCl 1,250 mg/ (Sodium Chloride) 262.5 mls @ 166.667 mls/hr IV Q12H SABINO Morphine Sulfate (Morphine) 2 mg IV Q4H PRN PRN Reason: Pain, Moderate (4-6) Last Admin: 01/17/17 03:16 Dose: 2 mg Naloxone HCl (Narcan 0.4 Mg/1 Ml) 0.4 mg IV ONCE NR Stop: 01/17/17 08:17 Last Admin: 01/17/17 07:23 Dose: 0.4 mg Naloxone HCl (Narcan 0.4 Mg/1 Ml) 0.4 mg IV ONCE NR Stop: 01/17/17 08:38 Ondansetron HCl (Zofran) 4 mg IV Q6H PRN PRN Reason: nausea or vomiting Pantoprazole Sodium (Protonix) 40 mg IV QDAY SABINO Last Admin: 01/16/17 20:22 Dose: 40 mg Pneumococcal Polyvalent Vaccine (Pneumovax 23) 0.5 ml IM .ONCE ONE Stop: 01/17/17 12:01 Sodium Bicarbonate (Sodium Bicarbonate) 50 meq IV ONCE NR Stop: 01/17/17 09:01 Vancomycin HCl (Vancomycin Pharmacy To Dose) 1 each IV PKCONSULT SABINO PRN Reason: Protocol Review of Systems ROS unobtainable: due to mental status Physical Examination Vital signs: Vital Signs Temp Pulse Resp Pulse Ox 97 F L 100 H 28 H 99 01/16/17 12:13 01/16/17 12:13 01/16/17 12:13 01/16/17 12:13 General appearance: other (obtunded) Eyes: non-icteric ENT: oropharynx dry Neck: supple Effort: mildly labored Ascultation: Bilateral: diminished breath sounds, rales Percussion: Bilateral: not dull Cardiovascular: regular rate and rhythm (sinus tachy) Gastrointestinal: hypoactive bowel sounds Integumentary: normal Extremities: pink and warm, pulses normal unable to assess Results - Laboratory Findings CBC and BMP: 01/17/17 04:28 01/17/17 04:28 ABG POC ABG pH 7.086 (7.35-7.45) L 01/17/17 05:00 POC ABG pCO2 69.1 (35-45) H 01/17/17 05:00 POC ABG pO2 143 (80-105) H 01/17/17 05:00 POC ABG HCO3 20.7 01/17/17 05:00 POC ABG Total CO2 23 01/17/17 05:00 POC ABG O2 Sat 98 01/17/17 05:00 PT/INR, D-dimer PT 16.1 Sec. (12.2-14.9) H 01/16/17 12:38 INR 1.23 (0.87-1.13) H 01/16/17 12:38 Abnormal lab findings: Abnormal Labs 01/16/17 01/16/17 01/16/17 12:38 12:38 12:38 WBC 16.7 H RBC 3.18 L Hgb 10.0 L Hct 29.2 L MCV RDW 16.9 H Lymph % (Auto) 8.1 L Eos # 0.5 H Seg Neutrophils % 83.9 H Seg Neutrophils # 14.0 H PT 16.1 H INR 1.23 H POC ABG pH POC ABG pCO2 POC ABG pO2 Carbon Dioxide 19 L BUN 24 H Glucose 195 H POC Glucose Hemoglobin A1c Calcium NT-Pro-B Natriuret Pep Albumin Urine WBC (Auto) 01/16/17 01/16/17 01/16/17 12:38 12:50 13:33 WBC RBC Hgb Hct MCV RDW Lymph % (Auto) Eos # Seg Neutrophils % Seg Neutrophils # PT INR POC ABG pH 7.456 H POC ABG pCO2 31.6 L POC ABG pO2 203 H Carbon Dioxide BUN Glucose POC Glucose Hemoglobin A1c Calcium NT-Pro-B Natriuret Pep 1522 H Albumin 3.1 L Urine WBC (Auto) 21.0 H 01/16/17 01/16/17 01/17/17 17:51 23:55 04:28 WBC 61.4 H* RBC 3.24 L Hgb 9.8 L Hct 31.1 L MCV 96 H RDW 17.5 H Lymph % (Auto) Eos # Seg Neutrophils % Seg Neutrophils # PT INR POC ABG pH POC ABG pCO2 POC ABG pO2 Carbon Dioxide BUN Glucose POC Glucose 263 H Hemoglobin A1c 6.5 H Calcium NT-Pro-B Natriuret Pep Albumin Urine WBC (Auto) 01/17/17 01/17/17 01/17/17 04:28 04:31 05:00 WBC RBC Hgb Hct MCV RDW Lymph % (Auto) Eos # Seg Neutrophils % Seg Neutrophils # PT INR POC ABG pH 7.086 L POC ABG pCO2 69.1 H POC ABG pO2 143 H Carbon Dioxide 18 L BUN 32 H Glucose 236 H POC Glucose 212 H Hemoglobin A1c Calcium 8.1 L NT-Pro-B Natriuret Pep Albumin 2.8 L Urine WBC (Auto) - Diagnostic Findings Chest x-ray: image reviewed CT scan - chest: image reviewed Assessment and Plan 81 y/o male with acute respiratory failure, most likely secondary to pneumonia, now with huge jump in white count and acute change in mental status with hypercapnea and hypoxemia, concern for infection in abdomen as well. 1. Resp-currently the most acute issue. Patient has hypercapnic respiratory failure now. Most likely a combination from narcotics, over oxygenation, worsening sepsis and underlying pneumonia. Have had a long discussion with daughter who has contacted her brother (patient son) who appears to be the medical power of state attorney. He and the patient's are on the way. They will alert as as to his wishes in regards to intubation and other invasive potential therapies. Made changes to bipap and given Narcan x2. Not any improve in mental status with narcan. 2. ID-patient with large increase in admission white count to now. Mild hypothermia overnight per nursing. Most likely septic. I have asked that the CBC be repeated just to be sure. Will continue Vanc Levaquin and Flagyl, given the recent GI surgery at outside hospital ([place]). Surgery has evaluated and not an operative candidate given current clinical state. Sepsis, could be from pneumonia vs gut. 3. Renal- Although function is still in the normal range, Cr has increased from 0.8-1.3 in less than 24 hours. Has had episodes of hypotension. Could be ATN. Still making urine currently. Will monitor 4. Follow up IR recs in regards to tube in gallbladder, currently would not transition out of ICU until family has made a decision about code status 5. Overall prognosis is guarded to poor, especially if the white count is accurate from this am. Discussed as stated above with daughter who expresses understanding. CCT 31 minutes.
[2017-01-17 07:53] LABS: ISTAT Base Excess -1; ISTAT HCO3 27.9; ISTAT PCO2 83.9 (35-45); ISTAT PO2 66 (80-105); ISTAT SO2 84; ISTAT TCO2 30
[2017-01-17] MEDS ORDERED: SODIUM BICARBONATE IV NR (08:00)
[2017-01-17] MEDS ORDERED: VANCOMYCIN 1,250 MG in NACL 0.9% 250ML 250 ML IV SCH (08:00)
[2017-01-17 08:43] LABS: White Blood Count TNR K/mm3 (4.5-11.0)
[2017-01-17 08:44] LABS: Hematocrit TNR % (35.5-45.6); Hemoglobin TNR gm/dl (11.8-15.2); Mean Corpuscular HGB Conc TNR % (32-34); Mean Corpuscular Hemoglobin TNR pg (28-32); Mean Corpuscular Volume TNR fl (84-94); Mean Platelet Volume TNR fl (6-12); Platelet Count TNR K/mm3 (140-440); Red Blood Count TNR M/mm3 (3.65-5.03); Red Cell Distribution Width TNR % (13.2-15.2)
[2017-01-17 08:45] LABS: Basophils % (Auto) TNR % (0.0-1.8); Eosinophils % (Auto) TNR % (0.0-4.3)
--- NOTE | 2017-01-17 08:59 | Progress Note ---
Hospitalist Physical - Constitutional Vitals: Temp Pulse Resp BP Pulse Ox 97.5 F L 110 H 30 H 104/49 98 01/17/17 08:00 01/17/17 07:46 01/17/17 07:43 01/17/17 07:43 01/17/17 07:46 Results - Labs CBC & Chem 7: 01/17/17 07:15 01/17/17 04:28 Labs: Laboratory Last Values WBC TNR 01/17/17 07:15 RBC TNR 01/17/17 07:15 Hgb TNR 01/17/17 07:15 Hct TNR 01/17/17 07:15 MCV TNR 01/17/17 07:15 MCH TNR 01/17/17 07:15 MCHC TNR 01/17/17 07:15 RDW TNR 01/17/17 07:15 Plt Count TNR 01/17/17 07:15 Lymph % (Auto) TNR 01/17/17 07:15 [place] % (Auto) TNR 01/17/17 07:15 Eos % (Auto) TNR 01/17/17 07:15 Baso % (Auto) TNR 01/17/17 07:15 Lymph # 1.4 K/mm3 (1.2-5.4) 01/16/17 12:38 [place] # 0.8 K/mm3 (0.0-0.8) 01/16/17 12:38 Eos # 0.5 K/mm3 (0.0-0.4) H 01/16/17 12:38 Baso # 0.1 K/mm3 (0.0-0.1) 01/16/17 12:38 Seg Neutrophils % TNR 01/17/17 07:15 Nucleated RBC % Not Reportable 01/17/17 07:15 Seg Neutrophils # TNR 01/17/17 07:15 WBC Morphology Not Reportable 01/17/17 07:15 Hypersegmented Neuts Not Reportable 01/17/17 07:15 Hyposegmented Neuts Not Reportable 01/17/17 07:15 Hypogranular Neuts Not Reportable 01/17/17 07:15 Smudge Cells Not Reportable 01/17/17 07:15 Toxic Granulation Not Reportable 01/17/17 07:15 Toxic Vacuolation Not Reportable 01/17/17 07:15 Dohle Bodies Not Reportable 01/17/17 07:15 Pelger-Huet Anomaly Not Reportable 01/17/17 07:15 Lamont Rods Not Reportable 01/17/17 07:15 Platelet Estimate Not Reportable 01/17/17 07:15 Clumped Platelets Not Reportable 01/17/17 07:15 Plt Clumps, EDTA Not Reportable 01/17/17 07:15 Large Platelets Not Reportable 01/17/17 07:15 Giant Platelets Not Reportable 01/17/17 07:15 Platelet Satelliting Not Reportable 01/17/17 07:15 Plt Morphology Comment Not Reportable 01/17/17 07:15 RBC Morphology Not Reportable 01/17/17 07:15 Dimorphic RBCs Not Reportable 01/17/17 07:15 Polychromasia Not Reportable 01/17/17 07:15 Hypochromasia Not Reportable 01/17/17 07:15 Poikilocytosis Not Reportable 01/17/17 07:15 Anisocytosis Not Reportable 01/17/17 07:15 Microcytosis Not Reportable 01/17/17 07:15 Macrocytosis Not Reportable 01/17/17 07:15 Spherocytes Not Reportable 01/17/17 07:15 Pappenheimer Bodies Not Reportable 01/17/17 07:15 Sickle Cells Not Reportable 01/17/17 07:15 Target Cells Not Reportable 01/17/17 07:15 Tear Drop Cells Not Reportable 01/17/17 07:15 Ovalocytes Not Reportable 01/17/17 07:15 Helmet Cells Not Reportable 01/17/17 07:15 [place] Bodies Not Reportable 01/17/17 07:15 [place] Rings Not Reportable 01/17/17 07:15 [place] Cells Not Reportable 01/17/17 07:15 Bite Cells Not Reportable 01/17/17 07:15 Crenated Cell Not Reportable 01/17/17 07:15 Elliptocytes Not Reportable 01/17/17 07:15 Acanthocytes (Spur) Not Reportable 01/17/17 07:15 Rouleaux Not Reportable 01/17/17 07:15 Hemoglobin C Crystals Not Reportable 01/17/17 07:15 Schistocytes Not Reportable 01/17/17 07:15 Malaria parasites Not Reportable 01/17/17 07:15 Jairon Bodies Not Reportable 01/17/17 07:15 Hem Pathologist Commnt Not Reportable 01/17/17 07:15 PT 16.1 Sec. (12.2-14.9) H 01/16/17 12:38 INR 1.23 (0.87-1.13) H 01/16/17 12:38 APTT 32.7 Sec. (24.2-36.6) 01/16/17 12:38 POC ABG pH 7.130 (7.35-7.45) L 01/17/17 07:29 POC ABG pCO2 83.9 (35-45) H 01/17/17 07:29 POC ABG pO2 66 (80-105) L 01/17/17 07:29 POC ABG HCO3 27.9 01/17/17 07:29 POC ABG Total CO2 30 01/17/17 07:29 POC ABG O2 Sat 84 01/17/17 07:29 POC ABG Base Excess -1 01/17/17 07:29 FiO2 65 % 01/17/17 07:29 Sodium 141 mmol/L (137-145) 01/17/17 04:28 Potassium 5.0 mmol/L (3.6-5.0) 01/17/17 04:28 Chloride 106.2 mmol/L (98-107) 01/17/17 04:28 Carbon Dioxide 18 mmol/L (22-30) L 01/17/17 04:28 Anion Gap 22 mmol/L 01/17/17 04:28 BUN 32 mg/dL (9-20) H 01/17/17 04:28 Creatinine 1.3 mg/dL (0.8-1.5) D 01/17/17 04:28 Estimated GFR 53 ml/min 01/17/17 04:28 BUN/Creatinine Ratio 25 % 01/17/17 04:28 Glucose 236 mg/dL (75-100) H 01/17/17 04:28 POC Glucose 212 (70-105) H 01/17/17 04:31 Hemoglobin A1c 6.5 % (4-6) H 01/16/17 17:51 Lactic Acid 1.30 mmol/L (0.7-2.0) 01/16/17 13:38 Calcium 8.1 mg/dL (8.4-10.2) L 01/17/17 04:28 Total Bilirubin 0.20 mg/dL (0.1-1.2) 01/17/17 04:28 Direct Bilirubin < 0.2 mg/dL (0-0.2) 01/16/17 12:38 AST 21 units/L (5-40) 01/17/17 04:28 ALT 15 units/L (7-56) 01/17/17 04:28 Alkaline Phosphatase 65 units/L (35-129) 01/17/17 04:28 Troponin T < 0.010 ng/mL (0.00-0.029) 01/16/17 12:38 NT-Pro-B Natriuret Pep 1522 pg/mL (0-900) H 01/16/17 12:38 Total Protein 6.4 g/dL (6.3-8.2) 01/17/17 04:28 Albumin 2.8 g/dL (3.9-5) L 01/17/17 04:28 Albumin/Globulin Ratio 0.8 % 01/17/17 04:28 Lipase 28 units/L (13-60) 01/16/17 12:38 Urine Color Yellow (Yellow) 01/16/17 13:33 Urine Turbidity Clear (Clear) 01/16/17 13:33 Urine pH 6.0 (5.0-7.0) 01/16/17 13:33 Ur Specific [place] 1.009 (1.003-1.030) 01/16/17 13:33 Urine Protein 30 mg/dl mg/dL (Negative) 01/16/17 13:33 Urine Glucose (UA) Neg mg/dL (Negative) 01/16/17 13:33 Urine Ketones Neg mg/dL (Negative) 01/16/17 13:33 Urine Blood Neg (Negative) 01/16/17 13:33 Urine Nitrite Neg (Negative) 01/16/17 13:33 Urine Bilirubin Neg (Negative) 01/16/17 13:33 Urine Urobilinogen < 2.0 mg/dL (<2.0) 01/16/17 13:33 Ur Leukocyte Esterase Mod (Negative) 01/16/17 13:33 Urine WBC (Auto) 21.0 /HPF (0.0-6.0) H 01/16/17 13:33 Urine RBC (Auto) 5.0 /HPF (0.0-6.0) 01/16/17 13:33 U Epithel Cells (Auto) < 1.0 /HPF (0-13.0) 01/16/17 13:33 Urine Mucus Few /HPF 01/16/17 13:33 Urine Yeast (Budding) 1+ /HPF 01/16/17 13:33 Blood Type A POSITIVE 01/16/17 17:51 Antibody Screen Negative 01/16/17 17:51
[2017-01-17 09:21] LABS: Blastocytes % (Manual) 0 %
[2017-01-17 09:22] LABS: Basophils % (Manual) 0 % (0.0-1.8); Eosinophils % (Manual) 0 % (0.0-4.3); Total Cells Counted Percent 2.5
[2017-01-17 09:23] LABS: Anisocytosis Few; Diff Status Complete
--- NOTE | 2017-01-17 09:36 | Consultation ---
History of Present Illness - Reason for Consult Consult date: 01/17/17 sepsis Requesting physician: NAI CHUN - History of Present Illness 81 years old male with history of COPD on 3LNC at home, DM, GERD, recently admitted to [facility], 2 months ago, where his stayed for about 2 weeks due to pneumonia, cholecystitis requiring a cholecystectomy tube and UTI requiring a suprapubic catheter. Patient is readmitted on 01/16/2017 due to progressive shortness of breath and syncope. Patient is currently on CPAP on and lethargic, unable to give a history. Per his daughter, he was doing okay until 2 days ago when started complaining of shortness of breath, progressive associated with chest pain. In the emergency room, initial temperature was 97, heart rate 100, blood pressure 74/37. White blood cell count was 16 and then went to 61,000. Hemoglobin 10. Platelets 300. Creatinine 0.8. Urinalysis showed 21 white blood cells and moderate leukocyte esterase. He was on CPAP. Microbiology: Blood cultures: 01/16 ngtd Urine cultures: Respiratory cultures: Wound cultures: Current Antimicrobials: Levaquin Vancomycin Metronidazole Previous Antimicrobials: Past History Past Medical History: COPD, diabetes, GERD Past Surgical History: Other (percutaneous cholecystostomy tube, appendectomy) Social history: denies: smoking, alcohol abuse Family history: no significant family history Medications and Allergies Allergies Allergy/AdvReac Type Severity Reaction Status Date / Time cephalexin monohydrate Allergy Rash Verified 03/30/16 13:54 [From Keflex] Cephalosporins Allergy Rash Verified 01/03/13 14:16 Penicillins Allergy Rash Verified 01/03/13 14:16 Home Medications Medication Instructions Recorded Confirmed Last Taken Type Aspirin [Aspirin BABY CHEW TAB] 81 mg PO DAILY 02/17/13 10/11/16 03/30/16 History FLUoxetine [PROzac] 20 mg PO DAILY 02/17/13 10/11/16 03/30/16 History metFORMIN [Glucophage] 500 mg PO DAILY 02/17/13 10/11/16 03/30/16 History Budesonide [Pulmicort Respules] 0.5 mg IH Q12HRT #14 nebu 02/19/13 10/11/1605/11 Rx Insulin Aspart [NovoLOG Flexpen] 10 units SQ BID 04/05/16 10/11/16 Unknown History Allopurinol [Zyloprim] 100 mg PO QDAY 10/11/16 10/11/16 Unknown History Budesonide [Pulmicort Flexhaler] 90 mcg IH BID 10/11/16 10/11/16 Unknown History Fludrocortisone [Florinef Tab] 0.1 mg PO QDAY 10/11/16 10/11/16 Unknown History Ibuprofen [Motrin] 800 mg PO Q8HR PRN 10/11/16 10/11/16 Unknown History Insulin Regular, Human [HumuLIN R] 4 units SUB-Q BID 10/11/16 10/11/16 Unknown History Pregabalin [Lyrica] 75 mg PO QDAY 10/11/16 10/11/16 Unknown History Umeclidinium Brm/Vilanterol Tr 1 each IH DAILY 10/11/16 10/11/16 Unknown History [Anoro Ellipta 62.5-25 Mcg INH] Active Meds: Active Medications Levofloxacin/Dextrose (Levaquin 750mg/150ml) 750 mg in 150 mls @ 100 mls/hr IV Q24HR SABINO PRN Reason: Protocol Metronidazole (Flagyl 500 Mg/100 Ml) 500 mg in 100 mls @ 100 mls/hr IV Q8HR SABINO Last Admin: 01/17/17 05:38 Dose: 100 mls/hr Norepinephrine (Levophed Drip 4 Mg/Ns 250 Ml) 4 mg in 250 mls @ 7.5 mls/hr IV TITR SABINO; 2 MCG/MIN PRN Reason: Protocol Vancomycin HCl 1,250 mg/ (Sodium Chloride) 262.5 mls @ 166.667 mls/hr IV Q12H [facility] Last Admin: 01/17/17 08:34 Dose: 166.667 mls/hr Ondansetron HCl (Zofran) 4 mg IV Q6H PRN PRN Reason: nausea or vomiting Pantoprazole Sodium (Protonix) 40 mg IV QDAY [facility] Last Admin: 01/16/17 20:22 Dose: 40 mg Pneumococcal Polyvalent Vaccine (Pneumovax 23) 0.5 ml IM .ONCE ONE Stop: 01/17/17 12:01 Vancomycin HCl (Vancomycin Pharmacy To Dose) 1 each IV PKCONSULT SABINO PRN Reason: Protocol Review of Systems ROS unobtainable: due to mental status Physical Examination - Physical Exam Narrative exam: General appearance: somnolent on CPAP in mod resp distress Eyes: anicteric sclerae, moist conjunctivae; no lid-lag; PERRLA HENT: Atraumatic; oropharynx +CPAP Neck: Trachea midline; supple, no thyromegaly or lymphadenopathy Lungs: + idania rhonchi with increased respiratory effort and intercostal retractions CV: RRR, no murmurs Abdomen: Soft, non-tender + RUQ tube with dark biliary content Extremities: No peripheral edema or extremity lymphadenopathy Skin: Normal temperature, turgor and texture; no rash, ulcers or subcutaneous nodules Psych: lethargic Neuro: Lines: No CVL / PICC - Constitutional Vitals: Vital Signs Temp Pulse Resp BP Pulse Ox 97.5 F L 110 H 30 H 104/49 98 01/17/17 08:00 01/17/17 07:46 01/17/17 07:43 01/17/17 07:43 01/17/17 07:46 Temperature -Last 24 Hours Temperature 97.5 F Temperature 96.8 F Temperature 96.0 F Temperature 98 F Temperature 98 F Temperature 97 F Results - Labs CBC & Chem 7: 01/17/17 07:15 01/17/17 04:28 Labs: Abnormal lab results 01/16/17 01/16/17 01/16/17 Range/Units 12:38 12:38 12:38 WBC 16.7 H (4.5-11.0) K/mm3 RBC 3.18 L (3.65-5.03) M/mm3 Hgb 10.0 L (11.8-15.2) gm/dl Hct 29.2 L (35.5-45.6) % MCV (84-94) fl RDW 16.9 H (13.2-15.2) % Lymph % (Auto) 8.1 L (13.4-35.0) % Eos # 0.5 H (0.0-0.4) K/mm3 Seg Neutrophils % 83.9 H (40.0-70.0) % Lymphocytes % (Manual) (13.4-35.0) % Seg Neutrophils # 14.0 H (1.8-7.7) K/mm3 Seg Neutrophils # Man (1.8-7.7) K/mm3 Monocytes # (Manual) (0.0-0.8) K/mm3 PT 16.1 H (12.2-14.9) Sec. INR 1.23 H (0.87-1.13) POC ABG pH (7.35-7.45) POC ABG pCO2 (35-45) POC ABG pO2 (80-105) Carbon Dioxide 19 L (22-30) mmol/L BUN 24 H (9-20) mg/dL Glucose 195 H (75-100) mg/dL POC Glucose (70-105) Hemoglobin A1c (4-6) % Calcium (8.4-10.2) mg/dL NT-Pro-B Natriuret Pep (0-900) pg/mL Albumin (3.9-5) g/dL Urine WBC (Auto) (0.0-6.0) /HPF 01/16/17 01/16/17 01/16/17 Range/Units 12:38 12:50 13:33 WBC (4.5-11.0) K/mm3 RBC (3.65-5.03) M/mm3 Hgb (11.8-15.2) gm/dl Hct (35.5-45.6) % MCV (84-94) fl RDW (13.2-15.2) % Lymph % (Auto) (13.4-35.0) % Eos # (0.0-0.4) K/mm3 Seg Neutrophils % (40.0-70.0) % Lymphocytes % (Manual) (13.4-35.0) % Seg Neutrophils # (1.8-7.7) K/mm3 Seg Neutrophils # Man (1.8-7.7) K/mm3 Monocytes # (Manual) (0.0-0.8) K/mm3 PT (12.2-14.9) Sec. INR (0.87-1.13) POC ABG pH 7.456 H (7.35-7.45) POC ABG pCO2 31.6 L (35-45) POC ABG pO2 203 H (80-105) Carbon Dioxide (22-30) mmol/L BUN (9-20) mg/dL Glucose (75-100) mg/dL POC Glucose (70-105) Hemoglobin A1c (4-6) % Calcium (8.4-10.2) mg/dL NT-Pro-B Natriuret Pep 1522 H (0-900) pg/mL Albumin 3.1 L (3.9-5) g/dL Urine WBC (Auto) 21.0 H (0.0-6.0) /HPF 01/16/17 01/16/17 01/17/17 Range/Units 17:51 23:55 04:28 WBC 61.4 H* (4.5-11.0) K/mm3 RBC 3.24 L (3.65-5.03) M/mm3 Hgb 9.8 L (11.8-15.2) gm/dl Hct 31.1 L (35.5-45.6) % MCV 96 H (84-94) fl RDW 17.5 H (13.2-15.2) % Lymph % (Auto) (13.4-35.0) % Eos # (0.0-0.4) K/mm3 Seg Neutrophils % (40.0-70.0) % Lymphocytes % (Manual) 2.5 L (13.4-35.0) % Seg Neutrophils # (1.8-7.7) K/mm3 Seg Neutrophils # Man 33.8 H (1.8-7.7) K/mm3 Monocytes # (Manual) 1.2 H (0.0-0.8) K/mm3 PT (12.2-14.9) Sec. INR (0.87-1.13) POC ABG pH (7.35-7.45) POC ABG pCO2 (35-45) POC ABG pO2 (80-105) Carbon Dioxide (22-30) mmol/L BUN (9-20) mg/dL Glucose (75-100) mg/dL POC Glucose 263 H (70-105) Hemoglobin A1c 6.5 H (4-6) % Calcium (8.4-10.2) mg/dL NT-Pro-B Natriuret Pep (0-900) pg/mL Albumin (3.9-5) g/dL Urine WBC (Auto) (0.0-6.0) /HPF 01/17/17 01/17/17 01/17/17 Range/Units 04:28 04:31 05:00 WBC (4.5-11.0) K/mm3 RBC (3.65-5.03) M/mm3 Hgb (11.8-15.2) gm/dl Hct (35.5-45.6) % MCV (84-94) fl RDW (13.2-15.2) % Lymph % (Auto) (13.4-35.0) % Eos # (0.0-0.4) K/mm3 Seg Neutrophils % (40.0-70.0) % Lymphocytes % (Manual) (13.4-35.0) % Seg Neutrophils # (1.8-7.7) K/mm3 Seg Neutrophils # Man (1.8-7.7) K/mm3 Monocytes # (Manual) (0.0-0.8) K/mm3 PT (12.2-14.9) Sec. INR (0.87-1.13) POC ABG pH 7.086 L (7.35-7.45) POC ABG pCO2 69.1 H (35-45) POC ABG pO2 143 H (80-105) Carbon Dioxide 18 L (22-30) mmol/L BUN 32 H (9-20) mg/dL Glucose 236 H (75-100) mg/dL POC Glucose 212 H (70-105) Hemoglobin A1c (4-6) % Calcium 8.1 L (8.4-10.2) mg/dL NT-Pro-B Natriuret Pep (0-900) pg/mL Albumin 2.8 L (3.9-5) g/dL Urine WBC (Auto) (0.0-6.0) /HPF 01/17/17 01/17/17 Range/Units 07:29 08:14 WBC (4.5-11.0) K/mm3 RBC (3.65-5.03) M/mm3 Hgb (11.8-15.2) gm/dl Hct (35.5-45.6) % MCV (84-94) fl RDW (13.2-15.2) % Lymph % (Auto) (13.4-35.0) % Eos # (0.0-0.4) K/mm3 Seg Neutrophils % (40.0-70.0) % Lymphocytes % (Manual) (13.4-35.0) % Seg Neutrophils # (1.8-7.7) K/mm3 Seg Neutrophils # Man (1.8-7.7) K/mm3 Monocytes # (Manual) (0.0-0.8) K/mm3 PT (12.2-14.9) Sec. INR (0.87-1.13) POC ABG pH 7.130 L (7.35-7.45) POC ABG pCO2 83.9 H (35-45) POC ABG pO2 66 L (80-105) Carbon Dioxide (22-30) mmol/L BUN (9-20) mg/dL Glucose (75-100) mg/dL POC Glucose 242 H (70-105) Hemoglobin A1c (4-6) % Calcium (8.4-10.2) mg/dL NT-Pro-B Natriuret Pep (0-900) pg/mL Albumin (3.9-5) g/dL Urine WBC (Auto) (0.0-6.0) /HPF Assessment and Plan Assessment: 1) Sepsis: Present on admission, manifested by tachycardia, hypotension, leukocytosis. Etiology most likely pneumonia +/- biliary +/- UTI. 2) Respiratory failure: multifactorial - pulmonary edema +/- pneumonia 3) Bilateral pneumonia: CTA showed bilateral perihilar infiltrates, no PE 4) Recent cholecystitis s/p chle tube. CT abd showed mild inflammatory GB, steffany tube and distal CBD presumed stone 5) LEXI 6) Anemia 7) UTI: recent SP cath, s/p new griffin placed in the ED Plan: -follow-up blood cultures, urine culture -obtain respiratory cultures, C-reactive protein (CRP) -continue vancomcyin, levaquin and flagyl for now -poor prognosis / pt made DNR I will be off tomorrow, available on the phone and will be back rounding on the weekend Thank you Dr Chun for your consultation, will follow up with you. Angie Rodriguez MD Infectious Diseases Specialist [facility] ([facility] M [phone] O [phone]
[2017-01-17] MEDS ORDERED: LEVAQUIN 750MG/150ML 750 MG/150 ML BAG IV SCH (10:00)
[2017-01-17 11:01] VITALS: BP 72/36
--- NOTE | 2017-01-17 11:16 | Death Note ---
Note Date of : 01/17/17 Time of : 10:42 Time Pronounced: 10:48
--- NOTE | 2017-01-17 11:54 | Consultation ---
REFERRING PHYSICIAN: Dr. Sammy Aguilar. INDICATION: 1. Abdominal pain. 2. Cholecystectomy tube. HISTORY OF PRESENT ILLNESS: The patient is an 81-year-old male with history of COPD on home oxygen, diabetes, GERD. The patient recently was at [facility] 2 months ago and had a percutaneous cholecystectomy tube placed. GI was called because of leakage around the tube. No other specific GI complaints including nausea, vomiting. PAST MEDICAL HISTORY: 1. COPD. 2. Diabetes. 3. GERD. PAST SURGICAL HISTORY: Status post cholecystectomy tube, status post appendectomy. MEDICATIONS: See chart. ALLERGIES: KEFLEX, PENICILLIN, CEPHALOSPORINS. SOCIAL HISTORY: Lives at home. FAMILY HISTORY: Noncontributory. REVIEW OF SYSTEMS: GENERAL: Weakness. HEENT: No visual complaints. PULMONARY: Some shortness of breath. No cough. No chest pain. GASTROINTESTINAL: No specific complaints. All points of 13-point review of systems otherwise benign. PHYSICAL EXAMINATION: VITAL SIGNS: Temperature of 97.5, pulse 100, respirations 20, blood pressure 92/45. GENERAL: Fairly weak with no acute distress. HEENT: Pupils equal, round, reactive. PULMONARY: Rhonchi. CARDIOVASCULAR: Regular rhythm. ABDOMEN: Soft. SKIN: No obvious rashes. LABORATORY DATA: White count of 61. Hemoglobin and hematocrit of 9.8 and 31, platelet count of 324. Chem-7 within normal limits. LFTs within normal limits. ASSESSMENT AND PLAN: An 81-year-old male status post cholecystotomy tube now with leakage around the tube. This is an Interventional Radiology issue and will defer management to them. The patient though seems to be in septic shock with management per primary team. PLAN: 1. Septic shock, management per primary team. Would recommend ID consult. 2. IR consult for possible replacement fixing of leakage around the cholecystectomy tube. 3. No further GI intervention necessary at this time, will sign off. Call if needed. JOB# [id number] CAB/NTS
[2017-01-17] MEDS ORDERED: PNEUMOVAX 23 IM ONE (12:00)
--- NOTE | 2017-01-17 19:27 | Death Summary ---
Summary - Providers Consults: 01/16/17 17:20 Consult to Dietitian/Nutrition [CONS] Routine Physician Instructions: Reason For Exam: Reason for Consult: Write/Manage Tube Feeding 01/16/17 17:32 Consult to Physician [CONS] Routine Consulting Provider: NIKKI LOPEZ Reason For Exam: cholecystostomy, leakage around skin on abdomen Place consult to:: Dr. Sally Hall Notified:: Answering Service Phone number called:: [phone] Was contact made?: Yes If yes, spoke with:: Dr. Sally Hall Time called:: 20:26 01/16/17 17:33 Consult to Physician [CONS] Routine Consulting Provider: NATHAN FENG Reason For Exam: Sepsis Place consult to:: Dr. Benson Notified:: Via her number Phone number called:: her cell number Was contact made?: Yes If yes, spoke with:: Dr. Benson Time called:: 20:15 Comment:: can see tomorrow 01/16/17 17:34 Consult to Physician [CONS] Routine Consulting Provider: PAM MOLINA Reason For Exam: Acute on chronic resp failure,hypotensive Place consult to:: Dr. Molina Notified:: Answering Service Phone number called:: [phone] Was contact made?: Yes If yes, spoke with:: Dr. Molina Time called:: 19:59 01/16/17 19:22 Consult to Physician [CONS] Routine Consulting Provider: MERLIN ALEMAN Reason For Exam: Leaking cholecystostomy tube Place consult to:: Dr. Aleman Notified:: Via her cell number Phone number called:: her cell number Was contact made?: Yes If yes, spoke with:: Dr. Aleman Time called:: 20:18 Comment:: will see tomorrow 01/17/17 05:00 Consult to Interventional Radiology [CONS] Routine Consulting Provider: RA GARCIAS Reason For Exam: evaluation of cholecystostomy tube Attending: NAI CHUN - summary Date of admission: 01/16/17 17:20 Date of : 01/17/17
[2017-01-18] MEDS ORDERED: VANCOMYCIN 1,250 MG in NACL 0.9% 250ML 250 ML IV SCH (08:00)
== END 2017-01-17 14:00 | DRG 871 ==
LOC: ED 12:10 → CC1 17:20
PROVIDERS: ADMIT Internal Medicine; ATTEND Internal Medicine
PROC: 5A09357 Assistance with Respiratory Ventilation, Less than 24 Consecutive Hours, Continuous Positive Airway Pressure (ICD-10-PCS; principal; 2017-01-16)
PROC: 4A033R1 Measurement of Arterial Saturation, Peripheral, Percutaneous Approach (ICD-10-PCS; 2017-01-16)
PROC: 05HM33Z Insertion of Infusion Device into Right Internal Jugular Vein, Percutaneous Approach (ICD-10-PCS; 2017-01-16)
PROC: 3E0234Z Introduction of Serum, Toxoid and Vaccine into Muscle, Percutaneous Approach (ICD-10-PCS; 2017-01-17)
DX: A41.9 Sepsis, unspecified organism (principal); J18.9 Pneumonia, unspecified organism; R65.21 Severe sepsis with septic shock; J96.22 Acute and chronic respiratory failure with hypercapnia; N39.0 Urinary tract infection, site not specified; N17.9 Acute kidney failure, unspecified; K21.9 Gastro-esophageal reflux disease without esophagitis; Z96.89 Presence of other specified functional implants; D64.9 Anemia, unspecified; L89.899 Pressure ulcer of other site, unspecified stage; Z88.1 Allergy status to other antibiotic agents; Z88.0 Allergy status to penicillin; Z88.2 Allergy status to sulfonamides; Z79.4 Long term (current) use of insulin; Z79.899 Other long term (current) drug therapy; Z90.49 Acquired absence of other specified parts of digestive tract; Z23 Encounter for immunization
CPT/HCPCS: 36415; 36600; 70450; 71010; 71275; 74177; 80048; 80053; 80074; 81001; 82140; 82533; 82803; 82962; 83036; 83690; 83880; 84484; 85007; 85025; 85610; 85730; 86140; 86850; 86900; 86901; 87040; 87086; 90732; 93005; 93010; 94644; 94660; 96361; 96374; 96375; C9113; J1170; J1956; J2270; J2310; J2405; J3370; J7030; J7040; J7050; Q9967